=== PATIENT | male | born 1935 | race Caucasian/White ===

== ENCOUNTER 2021-06-13 13:34 | Outpatient (CLI) | payer MEDICARE, BC | END 2021-06-13 13:35 | disposition home or self-care (01) | LOC: CSHWCC 13:34 | PROVIDERS: ATTEND Nurse Practitioner Family | DX: L89.514 Pressure ulcer of right ankle, stage 4 (principal); R60.1 Generalized edema ==

== ENCOUNTER 2021-06-21 14:24 | Outpatient (CLI) | payer MEDICARE, BC | END 2021-06-21 14:25 | disposition home or self-care (01) | LOC: CSHWCC 14:24 | PROVIDERS: ATTEND Nurse Practitioner Family | DX: I87.313 Chronic venous hypertension (idiopathic) with ulcer of bilateral lower extremity (principal); L97.219 Non-pressure chronic ulcer of right calf with unspecified severity; L97.319 Non-pressure chronic ulcer of right ankle with unspecified severity; L97.229 Non-pressure chronic ulcer of left calf with unspecified severity | CPT/HCPCS: 11043; 29581; 97139; G0463; 99213 ==

== ENCOUNTER 2021-07-05 14:32 | Outpatient (CLI) | payer MEDICARE, BC | END 2021-07-05 14:33 | disposition home or self-care (01) | LOC: CSHWCC 14:32 | PROVIDERS: ATTEND Nurse Practitioner Family | DX: I87.311 Chronic venous hypertension (idiopathic) with ulcer of right lower extremity (principal); L97.312 Non-pressure chronic ulcer of right ankle with fat layer exposed; R60.1 Generalized edema | CPT/HCPCS: 11042; 87070; 87077; 87186; 87205; 99213; G0463 ==

== ENCOUNTER 2021-08-09 14:58 | Outpatient (CLI) | payer MEDICARE, BC | END 2021-08-09 14:59 | disposition home or self-care (01) | LOC: CSHWCC 14:58 | PROVIDERS: ATTEND Nurse Practitioner Family | DX: I87.311 Chronic venous hypertension (idiopathic) with ulcer of right lower extremity (principal); L97.312 Non-pressure chronic ulcer of right ankle with fat layer exposed; L97.212 Non-pressure chronic ulcer of right calf with fat layer exposed; R60.0 Localized edema | CPT/HCPCS: 11043; 11046; 29581 ==

== ENCOUNTER 2021-08-30 15:03 | Outpatient (CLI) | payer MEDICARE, BC | END 2021-08-30 15:04 | disposition home or self-care (01) | LOC: CSHWCC 15:03 | PROVIDERS: ATTEND Nurse Practitioner Family | DX: I87.311 Chronic venous hypertension (idiopathic) with ulcer of right lower extremity (principal); L97.812 Non-pressure chronic ulcer of other part of right lower leg with fat layer exposed; L97.212 Non-pressure chronic ulcer of right calf with fat layer exposed; R60.0 Localized edema | CPT/HCPCS: 11042; 97605 ==

== ENCOUNTER 2021-09-13 14:36 | Outpatient (CLI) | payer MEDICARE, BC | END 2021-09-13 14:37 | disposition home or self-care (01) | LOC: CSHWCC 14:36 | PROVIDERS: ATTEND Nurse Practitioner Family | DX: I87.311 Chronic venous hypertension (idiopathic) with ulcer of right lower extremity (principal); L97.312 Non-pressure chronic ulcer of right ankle with fat layer exposed; L97.212 Non-pressure chronic ulcer of right calf with fat layer exposed; R60.0 Localized edema | CPT/HCPCS: 11042; 97139; G0463; 99213 ==

== ENCOUNTER 2021-09-20 13:53 | Outpatient (CLI) | payer MEDICARE, BC | END 2021-09-20 13:54 | disposition home or self-care (01) | LOC: CSHWCC 13:53 | PROVIDERS: ATTEND Nurse Practitioner Family | DX: I87.311 Chronic venous hypertension (idiopathic) with ulcer of right lower extremity (principal); L97.312 Non-pressure chronic ulcer of right ankle with fat layer exposed; L97.212 Non-pressure chronic ulcer of right calf with fat layer exposed; R60.0 Localized edema ==

== ENCOUNTER 2021-09-20 15:11 | Inpatient (IN) | payer MEDICARE, BC ==
[2021-09-20 15:44] LABS: #Monocytes 0.5 10x3/uL (0.0-1.1); #Neutrophils 10.4 10x3/uL (1.5-8.4); %Basophils 0.3 % (0.0-2.0); %Eosinophils 0.3 % (0.0-6.0); %Lymphocytes 6.3 % (18.0-47.0); %Monocytes 4.5 % (0.0-10.0); %Neutrophils 87.9 % (40.0-75.0); Hemoglobin 12.6 g/dL (13.5-17.5); Mean Corpuscular HGB CONC 32.3 g/dL (32.0-36.0); Mean Corpuscular Hemoglobin 29.7 pg (27.0-33.0); Mean Platelet Volume 8.9 fl (7.4-10.4); Platelet Count 206 10x3/uL (150-450); RBC Distribution Width 16.2 % (11.5-14.5); Red Blood Cell (RBC) Count 4.24 10x6/uL (4.32-5.72); White Blood Cell (WBC) Count 11.8 10x3/uL (3.5-10.5)
[2021-09-20] MEDS ORDERED: Cefepime 2 GM VIAL ONE (15:52)
[2021-09-20] MEDS ORDERED: Acetaminophen 325 MG TAB ONE (15:52)
[2021-09-20 16:16] LABS: ALT (SGPT) 30 U/L (8-55); AST (SGOT) 50 U/L (5-34); Albumin 3.7 g/dL (3.4-4.8); Alkaline Phosphatase 73 U/L (40-110); Anion Gap 17 mmol/L (10-20); BUN (Urea Nitrogen) 28 mg/dL (8.4-25.7); Bilirubin, Total 1.9 mg/dL (0.2-1.2); CK (CPK) 81 U/L (30-200); Calc. Creatinine Clearance 0 mL/min (70-130); Calcium 10.2 mg/dL (7.8-10.44); Carbon Dioxide 21 mmol/L (23-31); Chloride 94 mmol/L (98-107); Globulin 4.4 g/dL (2.4-3.5); Glucose 131 mg/dL (83-110); Potassium 4.3 mmol/L (3.5-5.1); Protein, Total 8.1 g/dL (5.8-8.1); Sodium 128 mmol/L (136-145)
[2021-09-20 16:23] LABS: Bilirubin Neg (Negative); Blood, Urine 150 (Negative); Glucose, Urine (Dipstick) >=1000 mg/dL (Negative); Ketone, Urine Negative (Negative); Leukocyte Negative (Negative); Nitrite Negative (Negative); Protein, Urine (Dipstick) 30 mg/dl (Neg-Trace)
[2021-09-20 16:38] LABS: Clarity Clear (Clear)
[2021-09-20 16:40] LABS: Squamous Epithelial 0-3 HPF (0-3); WBC/HPF 0-3 HPF (0-3)
[2021-09-20 16:43] LABS: Bacteria/HPF Rare-Few HPF (None Seen)
[2021-09-20] MEDS ORDERED: VANCOMYCIN 2 GRAM/400 ML BAG 2 GM in Premix Bag 1 BAG IVPB SCH (17:00)
[2021-09-20 17:03] LABS: SARS-CoV-2 NAA Rapid Test Not Detected (NotDetected)
[2021-09-20] MEDS ORDERED: Morphine 4 MG/ML VIAL ONE (17:11)
[2021-09-20] MEDS ORDERED: Senokot S 8.6-50 MG TAB PO PRN (18:06)
[2021-09-20] MEDS ORDERED: Dextrose 50% Abboject 50 ML SYRINGE SLOW IVP PRN (18:06)
[2021-09-20] MEDS ORDERED: Dextrose 5% in Water 1,000 ML IV PRN (18:06)
[2021-09-20] MEDS ORDERED: HumaLOG 300 UNITS/3 ML VIAL SC PRN ×2 (18:06)
[2021-09-20] MEDS ORDERED: Morphine 2 MG/ML VIAL SLOW IVP PRN (18:10)
[2021-09-20] MEDS ORDERED: Metoprolol Tartrate 5 MG/5 ML VIAL IVP SCH (22:00)
[2021-09-20] MEDS: Digoxin 0.5 MG/2 ML AMP SLOW IVP SCH ×2 (22:09→23:43)
[2021-09-20 22:35] LABS: Magnesium 1.8 mg/dL (1.6-2.6)
[2021-09-21] MEDS: Lactated Ringer's 1,000 ML IV SCH ×2 (02:00→21:56)
[2021-09-21] MEDS: Digoxin 0.5 MG/2 ML AMP SLOW IVP SCH (02:20)
[2021-09-21 04:34] LABS: #Monocytes 1.1 10x3/uL (0.0-1.1); #Neutrophils 10.3 10x3/uL (1.5-8.4); %Basophils 0.3 % (0.0-2.0); %Eosinophils 0.1 % (0.0-6.0); %Monocytes 8.9 % (0.0-10.0); %Neutrophils 82.1 % (40.0-75.0); Hemoglobin 10.6 g/dL (13.5-17.5); Mean Corpuscular HGB CONC 33.1 g/dL (32.0-36.0); Mean Corpuscular Hemoglobin 29.7 pg (27.0-33.0); Mean Corpuscular Volume 89.6 fl (81.2-95.1); Mean Platelet Volume 8.8 fl (7.4-10.4); Platelet Count 178 10x3/uL (150-450); RBC Distribution Width 16.2 % (11.5-14.5); Red Blood Cell (RBC) Count 3.57 10x6/uL (4.32-5.72); White Blood Cell (WBC) Count 12.5 10x3/uL (3.5-10.5)
[2021-09-21 05:06] LABS: ALT (SGPT) 34 U/L (8-55); AST (SGOT) 64 U/L (5-34); Albumin 2.8 g/dL (3.4-4.8); Alkaline Phosphatase 63 U/L (40-110); Anion Gap 14 mmol/L (10-20); BUN (Urea Nitrogen) 24 mg/dL (8.4-25.7); Bilirubin, Total 1.2 mg/dL (0.2-1.2); Calc. Creatinine Clearance 78 mL/min (70-130); Calcium 8.8 mg/dL (7.8-10.44); Carbon Dioxide 20 mmol/L (23-31); Chloride 101 mmol/L (98-107); Globulin 3.2 g/dL (2.4-3.5); Glucose 121 mg/dL (83-110); Sodium 131 mmol/L (136-145)
[2021-09-21] MEDS ORDERED: Piperacillin/Tazobactam 3.375 GM in Sodium Chloride 0.9% 100 ML IVPB SCH ×2 (09:30→13:45)
[2021-09-21] MEDS ORDERED: Rivaroxaban 15 MG TAB PO SCH (10:45)
[2021-09-21] MEDS: Morphine 2 MG/ML VIAL SLOW IVP PRN (11:49)
[2021-09-21] MEDS: Spironolactone 25 MG TAB PO SCH (11:59)
[2021-09-21] MEDS: Furosemide 20 MG TAB PO SCH (11:59)
[2021-09-21] MEDS: HYDROcodone/Acetaminophen 5/325 mg Tablet PO PRN (14:30)
[2021-09-21] MEDS ORDERED: Vancomycin HCl 1 GM in Sodium Chloride 0.9% 250 ML 250 ML IVPB SCH (15:00)
[2021-09-21] MEDS ORDERED: Cefepime 1 GM in Sodium Chloride 0.9% 100 ML IVPB SCH (21:00)
[2021-09-21] MEDS: Simvastatin 10 MG TAB PO SCH (21:56)
[2021-09-21] MEDS: Cefepime 2 GM in Sodium Chloride 0.9% 100 ML IVPB SCH (21:56)
[2021-09-21] MEDS: Ferrous Sulfate 325 MG TAB PO SCH (21:56)
[2021-09-21] MEDS: metroNIDAZOLE 500 MG TAB PO SCH (21:56)
[2021-09-22 05:16] LABS: #Eosinphils 0.2 10x3/uL (0.0-0.5); #Monocytes 1.1 10x3/uL (0.0-1.1); #Neutrophils 5.4 10x3/uL (1.5-8.4); %Basophils 0.4 % (0.0-2.0); %Lymphocytes 12.7 % (18.0-47.0); %Neutrophils 70.1 % (40.0-75.0); Hemoglobin 10.8 g/dL (13.5-17.5); Mean Corpuscular HGB CONC 32.7 g/dL (32.0-36.0); Mean Corpuscular Hemoglobin 29.5 pg (27.0-33.0); Mean Corpuscular Volume 90.2 fl (81.2-95.1); Mean Platelet Volume 8.8 fl (7.4-10.4); Platelet Count 190 10x3/uL (150-450); RBC Distribution Width 16.1 % (11.5-14.5); Red Blood Cell (RBC) Count 3.66 10x6/uL (4.32-5.72); White Blood Cell (WBC) Count 7.6 10x3/uL (3.5-10.5)
[2021-09-22 05:27] LABS: ALT (SGPT) 58 U/L (8-55); AST (SGOT) 98 U/L (5-34); Albumin 2.7 g/dL (3.4-4.8); Alkaline Phosphatase 64 U/L (40-110); Anion Gap 15 mmol/L (10-20); BUN (Urea Nitrogen) 22 mg/dL (8.4-25.7); Bilirubin, Total 0.9 mg/dL (0.2-1.2); Calc. Creatinine Clearance 83 mL/min (70-130); Calcium 8.8 mg/dL (7.8-10.44); Carbon Dioxide 20 mmol/L (23-31); Chloride 100 mmol/L (98-107); Globulin 3.2 g/dL (2.4-3.5); Glucose 110 mg/dL (83-110); Potassium 4.2 mmol/L (3.5-5.1); Protein, Total 5.9 g/dL (5.8-8.1); Sodium 131 mmol/L (136-145)
[2021-09-22] MEDS: Bisacodyl 5 MG TAB PO PRN (06:23)
[2021-09-22] MEDS: Amiodarone 200 MG TAB PO SCH (11:10)
[2021-09-22] MEDS: Empagliflozin 10 MG TAB PO SCH (11:10)
[2021-09-22] MEDS: Cefepime 2 GM in Sodium Chloride 0.9% 100 ML IVPB SCH ×2 (11:10→22:00)
[2021-09-22] MEDS: Morphine 2 MG/ML VIAL SLOW IVP PRN (11:11)
[2021-09-22] MEDS: metroNIDAZOLE 500 MG TAB PO SCH ×2 (11:11→21:55)
[2021-09-22] MEDS: Aspirin 81 mg Enteric Coated Tablet PO SCH (11:11)
[2021-09-22] MEDS: Stress 600 With Zinc 1 TAB PO SCH (11:11)
[2021-09-22] MEDS: HYDROcodone/Acetaminophen 5/325 mg Tablet PO PRN (18:01)
[2021-09-22] MEDS: Lactated Ringer's 1,000 ML IV SCH (18:02)
[2021-09-22] MEDS: Simvastatin 10 MG TAB PO SCH (21:55)
[2021-09-22] MEDS: Ferrous Sulfate 325 MG TAB PO SCH (21:55)
[2021-09-22] MEDS: Enoxaparin Sodium 100 MG/ML SYRINGE SC SCH (22:00)
[2021-09-23] MEDS: Acetaminophen 325 MG TAB PO PRN (04:43)
[2021-09-23] MEDS: Bisacodyl 5 MG TAB PO PRN (04:50)
[2021-09-23 05:23] LABS: ALT (SGPT) 73 U/L (8-55); AST (SGOT) 106 U/L (5-34); Albumin 2.8 g/dL (3.4-4.8); Alkaline Phosphatase 70 U/L (40-110); Anion Gap 16 mmol/L (10-20); BUN (Urea Nitrogen) 21 mg/dL (8.4-25.7); Bilirubin, Total 1.2 mg/dL (0.2-1.2); Calc. Creatinine Clearance 91 mL/min (70-130); Calcium 9.2 mg/dL (7.8-10.44); Carbon Dioxide 23 mmol/L (23-31); Chloride 97 mmol/L (98-107); Globulin 3.4 g/dL (2.4-3.5); Glucose 110 mg/dL (83-110); Potassium 4.2 mmol/L (3.5-5.1); Protein, Total 6.2 g/dL (5.8-8.1); Sodium 132 mmol/L (136-145)
[2021-09-23] MEDS ORDERED: Fleet Enema 133 ML BOT PR SCH (05:30)
[2021-09-23] MEDS: Stress 600 With Zinc 1 TAB PO SCH (08:58)
[2021-09-23] MEDS: Aspirin 81 mg Enteric Coated Tablet PO SCH (08:58)
[2021-09-23] MEDS: metroNIDAZOLE 500 MG TAB PO SCH ×2 (08:58→21:52)
[2021-09-23] MEDS: Amiodarone 200 MG TAB PO SCH (09:00)
[2021-09-23] MEDS: Cefepime 2 GM in Sodium Chloride 0.9% 100 ML IVPB SCH (09:00)
[2021-09-23] MEDS: Empagliflozin 10 MG TAB PO SCH (09:02)
[2021-09-23] MEDS: Enoxaparin Sodium 100 MG/ML SYRINGE SC SCH ×2 (09:03→22:00)
[2021-09-23] MEDS: Spironolactone 25 MG TAB PO SCH (09:06)
[2021-09-23] MEDS: Morphine 2 MG/ML VIAL SLOW IVP PRN ×2 (09:16→14:13)
[2021-09-23] MEDS: Lactated Ringer's 1,000 ML IV SCH (14:05)
[2021-09-23] MEDS: cefTRIAXone\\ROCEPHIN 2 GM in Sodium Chloride 0.9% 100 ML IVPB SCH (14:14)
[2021-09-23] MEDS: Ferrous Sulfate 325 MG TAB PO SCH (21:52)
[2021-09-23] MEDS: Simvastatin 10 MG TAB PO SCH (21:52)
[2021-09-23] MEDS: HYDROcodone/Acetaminophen 5/325 mg Tablet PO PRN (23:10)
[2021-09-24] MEDS: Acetaminophen 325 MG TAB PO PRN ×2 (06:12→12:54)
[2021-09-24] MEDS: Enoxaparin Sodium 100 MG/ML SYRINGE SC SCH ×2 (08:35→20:43)
[2021-09-24] MEDS: Amiodarone 200 MG TAB PO SCH (08:36)
[2021-09-24] MEDS: Aspirin 81 mg Enteric Coated Tablet PO SCH (08:36)
[2021-09-24] MEDS: Empagliflozin 10 MG TAB PO SCH (08:37)
[2021-09-24] MEDS: metroNIDAZOLE 500 MG TAB PO SCH ×2 (08:38→20:43)
[2021-09-24] MEDS: Stress 600 With Zinc 1 TAB PO SCH (08:38)
[2021-09-24] MEDS: Lactated Ringer's 1,000 ML IV SCH (08:40)
[2021-09-24] MEDS: Ondansetron ODT 4 MG TAB PO PRN (09:03)
[2021-09-24] MEDS ORDERED: Furosemide 20 MG TAB PO SCH (09:30)
[2021-09-24] MEDS: cefTRIAXone\\ROCEPHIN 2 GM in Sodium Chloride 0.9% 100 ML IVPB SCH (12:55)
[2021-09-24] MEDS: Ferrous Sulfate 325 MG TAB PO SCH (20:42)
[2021-09-24] MEDS: guaiFENesin ER 600 MG TAB PO SCH (20:42)
[2021-09-24] MEDS: Simvastatin 10 MG TAB PO SCH (20:43)
[2021-09-24] MEDS: HYDROcodone/Acetaminophen 5/325 mg Tablet PO PRN (20:47)
[2021-09-24] MEDS: Morphine 2 MG/ML VIAL SLOW IVP PRN (23:29)
[2021-09-25 04:22] LABS: #Basophils 0.1 10x3/uL (0.0-0.2); #Eosinphils 0.1 10x3/uL (0.0-0.5); #Monocytes 1.3 10x3/uL (0.0-1.1); #Neutrophils 9.4 10x3/uL (1.5-8.4); %Basophils 0.4 % (0.0-2.0); %Eosinophils 0.4 % (0.0-6.0); %Lymphocytes 9.3 % (18.0-47.0); %Monocytes 10.4 % (0.0-10.0); %Neutrophils 78.3 % (40.0-75.0); Hemoglobin 12.2 g/dL (13.5-17.5); Mean Corpuscular HGB CONC 32.7 g/dL (32.0-36.0); Mean Corpuscular Hemoglobin 28.8 pg (27.0-33.0); Mean Platelet Volume 8.4 fl (7.4-10.4); Platelet Count 210 10x3/uL (150-450); RBC Distribution Width 15.9 % (11.5-14.5); Red Blood Cell (RBC) Count 4.24 10x6/uL (4.32-5.72)
[2021-09-25] MEDS: Acetaminophen 325 MG TAB PO PRN ×2 (04:32→09:45)
[2021-09-25 04:43] LABS: INR-International Normal Ratio 1.3; Prothrombin Time 13.5 sec (9.5-12.1)
[2021-09-25 04:58] LABS: Anion Gap 15 mmol/L (10-20); BUN (Urea Nitrogen) 18 mg/dL (8.4-25.7); CRP (Inflammatory) 23.73 mg/dL (= or < 0.5); Calc. Creatinine Clearance 98 mL/min (70-130); Calcium 9.3 mg/dL (7.8-10.44); Carbon Dioxide 26 mmol/L (23-31); Chloride 94 mmol/L (98-107); Glucose 125 mg/dL (83-110); Potassium 3.9 mmol/L (3.5-5.1); Sodium 131 mmol/L (136-145)
[2021-09-25] MEDS: Lactated Ringer's 1,000 ML IV SCH (05:44)
[2021-09-25] MEDS: metroNIDAZOLE 500 MG TAB PO SCH ×2 (09:43→20:45)
[2021-09-25] MEDS: Stress 600 With Zinc 1 TAB PO SCH (09:44)
[2021-09-25] MEDS: guaiFENesin ER 600 MG TAB PO SCH ×2 (09:45→20:45)
[2021-09-25] MEDS: Amiodarone 200 MG TAB PO SCH (09:46)
[2021-09-25] MEDS: Aspirin 81 mg Enteric Coated Tablet PO SCH (09:47)
[2021-09-25] MEDS: Empagliflozin 10 MG TAB PO SCH (09:48)
[2021-09-25] MEDS: Enoxaparin Sodium 100 MG/ML SYRINGE SC SCH ×2 (09:49→20:45)
[2021-09-25] MEDS ORDERED: Lidocaine 1% PF 5 ML VIAL ONE (11:58)
[2021-09-25] MEDS ORDERED: Sodium Bicarbonate 2.5 MEQ/5 ML VIAL ONE (11:59)
[2021-09-25] MEDS: Spironolactone 25 MG TAB PO SCH (13:56)
[2021-09-25] MEDS: cefTRIAXone\\ROCEPHIN 2 GM in Sodium Chloride 0.9% 100 ML IVPB SCH ×2 (13:56→14:21)
[2021-09-25] MEDS: Ondansetron ODT 4 MG TAB PO PRN (17:51)
[2021-09-25] MEDS: HYDROcodone/Acetaminophen 5/325 mg Tablet PO PRN (18:56)
[2021-09-25] MEDS: Ferrous Sulfate 325 MG TAB PO SCH (20:45)
[2021-09-25] MEDS: Simvastatin 10 MG TAB PO SCH (20:47)
[2021-09-26] MEDS: HYDROcodone/Acetaminophen 5/325 mg Tablet PO PRN (01:24)
[2021-09-26] MEDS ORDERED: Communication Order-Pharmacy FS SCH (02:00)
[2021-09-26 04:59] LABS: #Basophils 0.1 10x3/uL (0.0-0.2); #Eosinphils 0.1 10x3/uL (0.0-0.5); #Monocytes 1.3 10x3/uL (0.0-1.1); #Neutrophils 7.3 10x3/uL (1.5-8.4); %Basophils 0.7 % (0.0-2.0); %Eosinophils 1.3 % (0.0-6.0); %Lymphocytes 13.9 % (18.0-47.0); %Monocytes 12.2 % (0.0-10.0); %Neutrophils 69.6 % (40.0-75.0); Mean Corpuscular HGB CONC 32.9 g/dL (32.0-36.0); Mean Corpuscular Hemoglobin 29.3 pg (27.0-33.0); Mean Corpuscular Volume 89.2 fl (81.2-95.1); Mean Platelet Volume 8.6 fl (7.4-10.4); Platelet Count 240 10x3/uL (150-450); RBC Distribution Width 16.1 % (11.5-14.5); Red Blood Cell (RBC) Count 4.09 10x6/uL (4.32-5.72); White Blood Cell (WBC) Count 10.5 10x3/uL (3.5-10.5)
[2021-09-26 05:14] LABS: Anion Gap 15 mmol/L (10-20); BUN (Urea Nitrogen) 22 mg/dL (8.4-25.7); Calc. Creatinine Clearance 106 mL/min (70-130); Calcium 9.4 mg/dL (7.8-10.44); Carbon Dioxide 27 mmol/L (23-31); Chloride 93 mmol/L (98-107); Glucose 97 mg/dL (83-110); Magnesium 1.8 mg/dL (1.6-2.6); Potassium 4.1 mmol/L (3.5-5.1); Sodium 131 mmol/L (136-145)
[2021-09-26] MEDS ORDERED: Sodium Chloride 0.9% 1,000 ML IV SCH (06:00)
[2021-09-26] MEDS: Lactated Ringer's 1,000 ML IV SCH (06:02)
[2021-09-26] MEDS: metroNIDAZOLE 500 MG TAB PO SCH ×2 (08:54→22:44)
[2021-09-26] MEDS: Amiodarone 200 MG TAB PO SCH (08:54)
[2021-09-26] MEDS: Aspirin 81 mg Enteric Coated Tablet PO SCH (08:54)
[2021-09-26] MEDS: guaiFENesin ER 600 MG TAB PO SCH ×2 (08:55→22:44)
[2021-09-26] MEDS: Empagliflozin 10 MG TAB PO SCH (08:55)
[2021-09-26] MEDS ORDERED: Furosemide 20 MG TAB PO SCH (09:00)
[2021-09-26] MEDS ORDERED: Iopamidol 300 61% 50 ML VIAL FS ONE (09:14)
[2021-09-26] MEDS ORDERED: Iopamidol 300 61% 100 ML VIAL FS ONE (09:15)
[2021-09-26 09:39] VITALS: BMI 34.8
[2021-09-26] MEDS: cefTRIAXone\\ROCEPHIN 2 GM in Sodium Chloride 0.9% 100 ML IVPB SCH (13:20)
[2021-09-26] MEDS ORDERED: Nitroglycerin 50 MG/250 ML BOT 0 ML ONE (13:25)
[2021-09-26] MEDS ORDERED: Heparin 10,000 UNITS/ 10 ML VIAL ONE (13:25)
[2021-09-26] MEDS ORDERED: Lidocaine 1% PF 5 ML VIAL ONE (13:26)
[2021-09-26] MEDS ORDERED: Adenosine 6 MG/2 ML VIAL ONE (13:26)
[2021-09-26] MEDS ORDERED: Fentanyl 100 MCG/2 ML VIAL ONE (15:20)
[2021-09-26] MEDS ORDERED: Midazolam HCl 2 mg/2 ml Vial ONE (15:20)
[2021-09-26] MEDS: Morphine 2 MG/ML VIAL SLOW IVP PRN (17:45)
[2021-09-26] MEDS ORDERED: Nitroglycerin 0.4 MG TAB (25 Tab Bottle) SL PRN (17:54)
[2021-09-26] MEDS ORDERED: Acetaminophen/Codeine 30-300mg Tablet PO PRN ×2 (17:54)
[2021-09-26] MEDS ORDERED: Sodium Chloride 0.9% 200 ML IV PRN (17:54)
[2021-09-26] MEDS: Ferrous Sulfate 325 MG TAB PO SCH (22:44)
[2021-09-26] MEDS: Simvastatin 10 MG TAB PO SCH (22:45)
[2021-09-27] MEDS: HYDROcodone/Acetaminophen 5/325 mg Tablet PO PRN (00:45)
[2021-09-27] MEDS: Lactated Ringer's 1,000 ML IV SCH (02:02)
[2021-09-27 04:28] LABS: Anion Gap 18 mmol/L (10-20); BUN (Urea Nitrogen) 23 mg/dL (8.4-25.7); Calc. Creatinine Clearance 83 mL/min (70-130); Calcium 9.1 mg/dL (7.8-10.44); Carbon Dioxide 27 mmol/L (23-31); Chloride 93 mmol/L (98-107); Glucose 109 mg/dL (83-110); Magnesium 1.9 mg/dL (1.6-2.6); Potassium 4.2 mmol/L (3.5-5.1); Sodium 134 mmol/L (136-145)
[2021-09-27] MEDS: Empagliflozin 10 MG TAB PO SCH (08:58)
[2021-09-27] MEDS: Stress 600 With Zinc 1 TAB PO SCH (08:59)
[2021-09-27] MEDS: metroNIDAZOLE 500 MG TAB PO SCH (08:59)
[2021-09-27] MEDS: Aspirin 81 mg Enteric Coated Tablet PO SCH (08:59)
[2021-09-27] MEDS: Amiodarone 200 MG TAB PO SCH (08:59)
[2021-09-27] MEDS: guaiFENesin ER 600 MG TAB PO SCH (08:59)
[2021-09-27] MEDS: Spironolactone 25 MG TAB PO SCH (09:01)
[2021-09-27 12:03] VITALS: BP 102/52
[2021-09-27 12:55] VITALS: TEMP 96.8
[2021-09-27] MEDS: cefTRIAXone\\ROCEPHIN 2 GM in Sodium Chloride 0.9% 100 ML IVPB SCH (12:59)
== END 2021-09-27 14:22 | disposition short-term general hospital (02) | DRG 871 ==
LOC: CSHERS 15:11 → INTOOBSV 19:33 → CSHTELE 19:33 → OBSVTOIN 09-21 16:53
PROVIDERS: ADMIT Family Medicine; ATTEND Family Medicine
PROC: 3E03329 Introduction of Other Anti-infective into Peripheral Vein, Percutaneous Approach (ICD-10-PCS; 2021-09-20)
PROC: 02HV33Z Insertion of Infusion Device into Superior Vena Cava, Percutaneous Approach (ICD-10-PCS; principal; 2021-09-25)
PROC: B548ZZA Ultrasonography of Superior Vena Cava, Guidance (ICD-10-PCS; 2021-09-25)
PROC: B41D1ZZ Fluoroscopy of Aorta and Bilateral Lower Extremity Arteries using Low Osmolar Contrast (ICD-10-PCS; 2021-09-27)
DX: A41.01 Sepsis due to Methicillin susceptible Staphylococcus aureus (principal); I50.33 Acute on chronic diastolic (congestive) heart failure; I48.92 Unspecified atrial flutter; E87.1 Hypo-osmolality and hyponatremia; L03.115 Cellulitis of right lower limb; I13.0 Hypertensive heart and chronic kidney disease with heart failure and stage 1 through stage 4 chronic kidney disease, or unspecified chronic kidney disease; Z68.41 Body mass index [BMI] 40.0-44.9, adult; M86.8X7 Other osteomyelitis, ankle and foot; Z66 Do not resuscitate; I25.10 Atherosclerotic heart disease of native coronary artery without angina pectoris; S91.001A Unspecified open wound, right ankle, initial encounter; L97.519 Non-pressure chronic ulcer of other part of right foot with unspecified severity; Z20.822 Contact with and (suspected) exposure to COVID-19; E11.40 Type 2 diabetes mellitus with diabetic neuropathy, unspecified; E11.51 Type 2 diabetes mellitus with diabetic peripheral angiopathy without gangrene; I87.2 Venous insufficiency (chronic) (peripheral); F03.90 Unspecified dementia, unspecified severity, without behavioral disturbance, psychotic disturbance, mood disturbance, and anxiety; I48.0 Paroxysmal atrial fibrillation; E78.2 Mixed hyperlipidemia; M54.9 Dorsalgia, unspecified; N18.32 Chronic kidney disease, stage 3b; J44.9 Chronic obstructive pulmonary disease, unspecified; E11.22 Type 2 diabetes mellitus with diabetic chronic kidney disease; E66.01 Morbid (severe) obesity due to excess calories; G47.30 Sleep apnea, unspecified; E11.21 Type 2 diabetes mellitus with diabetic nephropathy; E11.69 Type 2 diabetes mellitus with other specified complication; Z85.828 Personal history of other malignant neoplasm of skin; Z98.890 Other specified postprocedural states; Z95.5 Presence of coronary angioplasty implant and graft; Z95.1 Presence of aortocoronary bypass graft; Z99.81 Dependence on supplemental oxygen; Z98.42 Cataract extraction status, left eye; Z88.8 Allergy status to other drugs, medicaments and biological substances; I25.2 Old myocardial infarction; Z98.41 Cataract extraction status, right eye; Z82.49 Family history of ischemic heart disease and other diseases of the circulatory system; Z83.3 Family history of diabetes mellitus; Z79.01 Long term (current) use of anticoagulants; Z79.899 Other long term (current) drug therapy; Z79.84 Long term (current) use of oral hypoglycemic drugs; Z79.82 Long term (current) use of aspirin; Z79.891 Long term (current) use of opiate analgesic
CPT/HCPCS: 36140; 36245; 36415; 36416; 36569; 71045; 75625; 75635; 75716; 75736; 80048; 80053; 81003; 81015; 82550; 83605; 83735; 84484; 85025; 85610; 86140; 87040; 87077; 87086; 87149; 87186; 93005; 93306; 94760; 94799; 96361; 96365; 96375; 96376; 99152; 99153; 99213; C1751; C1769; C1894; G0378; G0463; J0153; J0692; J0696; J1160; J1644; J1650; J2250; J2270; J3010; J3370; J3490; J7050; J7120; J7620; Q0162; Q9967; U0002

== ENCOUNTER 2021-10-14 12:56 | Inpatient (IN) | payer MEDICARE, BC ==
[2021-10-14] MEDS ORDERED: Guaifenesin DM 100-10/5 ML UDCUP PO PRN (20:34)
[2021-10-14] MEDS ORDERED: Ondansetron PF 4 MG/2 ML Vial IVP PRN (20:34)
[2021-10-14] MEDS ORDERED: Senokot S 8.6-50 MG TAB PO PRN (20:34)
[2021-10-14] MEDS ORDERED: Albuterol Sulfate 1.25 MG/3 ML NEB EZPAP PRN (20:43)
[2021-10-14] MEDS ORDERED: Pantoprazole 80 MG in Sodium Chloride 0.9% 100 ML IVPB SCH (20:45)
[2021-10-14] MEDS ORDERED: cefTRIAXone\\ROCEPHIN 2 GM in Sodium Chloride 0.9% 100 ML IVPB SCH (21:00)
[2021-10-14] MEDS ORDERED: Dextrose 50% Abboject 50 ML SYRINGE SLOW IVP PRN (21:08)
[2021-10-14] MEDS ORDERED: Dextrose 5% in Water 1,000 ML IV PRN (21:08)
[2021-10-14 21:23] LABS: #Eosinphils 0.1 10x3/uL (0.0-0.5); #Monocytes 0.9 10x3/uL (0.0-1.1); #Neutrophils 4.1 10x3/uL (1.5-8.4); %Basophils 0.4 % (0.0-2.0); %Eosinophils 0.9 % (0.0-6.0); %Lymphocytes 23.2 % (18.0-47.0); %Monocytes 13.2 % (0.0-10.0); %Neutrophils 58.9 % (40.0-75.0); Hemoglobin 9.7 g/dL (13.5-17.5); Mean Corpuscular HGB CONC 32.7 g/dL (32.0-36.0); Mean Corpuscular Hemoglobin 29.1 pg (27.0-33.0); Mean Corpuscular Volume 89.2 fl (81.2-95.1); Mean Platelet Volume 8.5 fl (7.4-10.4); Platelet Count 125 10x3/uL (150-450); RBC Distribution Width 17.8 % (11.5-14.5); Red Blood Cell (RBC) Count 3.33 10x6/uL (4.32-5.72)
[2021-10-14 21:38] LABS: ALT (SGPT) 6 U/L (8-55); AST (SGOT) 31 U/L (5-34); Albumin 2.8 g/dL (3.4-4.8); Alkaline Phosphatase 60 U/L (40-110); Anion Gap 15 mmol/L (10-20); BUN (Urea Nitrogen) 40 mg/dL (8.4-25.7); Bilirubin, Total 0.8 mg/dL (0.2-1.2); Calc. Creatinine Clearance 122 mL/min (70-130); Calcium 8.5 mg/dL (7.8-10.44); Carbon Dioxide 22 mmol/L (23-31); Chloride 97 mmol/L (98-107); Globulin 3.7 g/dL (2.4-3.5); Glucose 85 mg/dL (83-110); Magnesium 2.3 mg/dL (1.6-2.6); Potassium 4.3 mmol/L (3.5-5.1); Protein, Total 6.5 g/dL (5.8-8.1); Sodium 130 mmol/L (136-145)
[2021-10-14 21:41] LABS: Troponin I 0.018 ng/mL (< 0.028)
[2021-10-14] MEDS ORDERED: Dexamethasone 20 MG/5 ML VIAL SLOW IVP SCH (22:00)
[2021-10-14] MEDS: metroNIDAZOLE 500 MG in Premix Bag 1 BAG IVPB SCH (22:07)
[2021-10-15] MEDS ORDERED: Lorazepam 2 MG/ML VIAL SLOW IVP SCH ×2 (01:45→21:15)
[2021-10-15] MEDS ORDERED: Lorazepam 2 MG/ML VIAL SLOW IVP PRN (02:00)
[2021-10-15 05:12] LABS: Hemoglobin 9.9 g/dL (13.5-17.5); Mean Corpuscular HGB CONC 31.9 g/dL (32.0-36.0); Mean Corpuscular Volume 90.9 fl (81.2-95.1); Mean Platelet Volume 8.7 fl (7.4-10.4); Platelet Count 136 10x3/uL (150-450); RBC Distribution Width 17.9 % (11.5-14.5); Red Blood Cell (RBC) Count 3.41 10x6/uL (4.32-5.72); White Blood Cell (WBC) Count 7.4 10x3/uL (3.5-10.5)
[2021-10-15 05:37] LABS: ALT (SGPT) Less than 6 U/L (8-55); AST (SGOT) 29 U/L (5-34); Albumin 2.7 g/dL (3.4-4.8); Alkaline Phosphatase 59 U/L (40-110); Anion Gap 17 mmol/L (10-20); BUN (Urea Nitrogen) 38 mg/dL (8.4-25.7); Bilirubin, Total 0.7 mg/dL (0.2-1.2); Calc. Creatinine Clearance 128 mL/min (70-130); Calcium 8.3 mg/dL (7.8-10.44); Carbon Dioxide 21 mmol/L (23-31); Chloride 100 mmol/L (98-107); Globulin 3.7 g/dL (2.4-3.5); Glucose 124 mg/dL (83-110); Potassium 4.6 mmol/L (3.5-5.1); Protein, Total 6.4 g/dL (5.8-8.1); Sodium 133 mmol/L (136-145)
[2021-10-15 06:24] LABS: MDiff Complete? YES
[2021-10-15 06:27] LABS: Band 8 % (5-11); Eosinophils 1 % (0-10); Lymphocytes 8 % (21-51); Metamyelocyte 3 % (0-0); Monocytes 4 % (0-10); Neutrophil 76 % (42-75)
[2021-10-15 06:28] LABS: Platelet Morphology Comment Appears Decreased; RBC Morphology Normal
[2021-10-15] MEDS: cefTRIAXone\\ROCEPHIN 2 GM in Sodium Chloride 0.9% 100 ML IVPB SCH (09:25)
[2021-10-15] MEDS: metroNIDAZOLE 500 MG in Premix Bag 1 BAG IVPB SCH ×2 (09:25→21:16)
[2021-10-15] MEDS: Dexamethasone 4 mg/ml Vial SLOW IVP SCH (09:31)
[2021-10-15] MEDS: Amiodarone 200 MG TAB PO SCH (09:31)
[2021-10-15] MEDS: Benzonatate 100 MG CAP PO PRN ×2 (09:31→21:16)
[2021-10-15] MEDS: Pantoprazole 40 MG VIAL IVP SCH (21:17)
[2021-10-16 05:34] LABS: #Monocytes 0.4 10x3/uL (0.0-1.1); #Neutrophils 5.6 10x3/uL (1.5-8.4); %Basophils 0.3 % (0.0-2.0); %Lymphocytes 11.2 % (18.0-47.0); %Neutrophils 79.6 % (40.0-75.0); Hemoglobin 9.9 g/dL (13.5-17.5); Mean Corpuscular HGB CONC 31.8 g/dL (32.0-36.0); Mean Corpuscular Hemoglobin 28.9 pg (27.0-33.0); Mean Corpuscular Volume 90.7 fl (81.2-95.1); Platelet Count 153 10x3/uL (150-450); RBC Distribution Width 18.2 % (11.5-14.5); Red Blood Cell (RBC) Count 3.43 10x6/uL (4.32-5.72)
[2021-10-16 05:50] LABS: Anion Gap 20 mmol/L (10-20); BUN (Urea Nitrogen) 46 mg/dL (8.4-25.7); CRP (Inflammatory) 8.14 mg/dL (= or < 0.5); Calc. Creatinine Clearance 128 mL/min (70-130); Calcium 8.4 mg/dL (7.8-10.44); Carbon Dioxide 19 mmol/L (23-31); Chloride 102 mmol/L (98-107); Glucose 146 mg/dL (83-110); Magnesium 2.4 mg/dL (1.6-2.6); Potassium 5.1 mmol/L (3.5-5.1); Sodium 136 mmol/L (136-145)
[2021-10-16] MEDS: metroNIDAZOLE 500 MG in Premix Bag 1 BAG IVPB SCH ×2 (09:21→21:16)
[2021-10-16] MEDS: Dexamethasone 4 mg/ml Vial SLOW IVP SCH (09:22)
[2021-10-16] MEDS: Pantoprazole 40 MG VIAL IVP SCH ×2 (09:22→21:16)
[2021-10-16] MEDS: Amiodarone 200 MG TAB PO SCH (09:22)
[2021-10-16] MEDS: cefTRIAXone\\ROCEPHIN 2 GM in Sodium Chloride 0.9% 100 ML IVPB SCH (10:50)
[2021-10-16 12:10] VITALS: BMI 41.8
[2021-10-16] MEDS: HumaLOG 300 UNITS/3 ML VIAL SC PRN (16:54)
[2021-10-16] MEDS: Acetaminophen 325 MG TAB PO PRN (21:18)
[2021-10-17] MEDS: Acetaminophen 325 MG TAB PO PRN ×2 (00:50→21:38)
[2021-10-17 05:39] LABS: #Monocytes 0.2 10x3/uL (0.0-1.1); #Neutrophils 5.1 10x3/uL (1.5-8.4); %Basophils 0.2 % (0.0-2.0); %Lymphocytes 8.3 % (18.0-47.0); %Monocytes 3.7 % (0.0-10.0); %Neutrophils 84.3 % (40.0-75.0); Mean Corpuscular HGB CONC 32.9 g/dL (32.0-36.0); Mean Corpuscular Hemoglobin 28.7 pg (27.0-33.0); Mean Corpuscular Volume 87.4 fl (81.2-95.1); Mean Platelet Volume 8.9 fl (7.4-10.4); Platelet Count 147 10x3/uL (150-450); RBC Distribution Width 18.1 % (11.5-14.5); Red Blood Cell (RBC) Count 3.48 10x6/uL (4.32-5.72)
[2021-10-17 05:59] LABS: Anion Gap 16 mmol/L (10-20); BUN (Urea Nitrogen) 50 mg/dL (8.4-25.7); Calc. Creatinine Clearance 62 mL/min (70-130); Calcium 8.2 mg/dL (7.8-10.44); Carbon Dioxide 22 mmol/L (23-31); Chloride 101 mmol/L (98-107); Glucose 176 mg/dL (83-110); Potassium 4.9 mmol/L (3.5-5.1); Sodium 134 mmol/L (136-145)
[2021-10-17] MEDS: Pantoprazole 40 MG VIAL IVP SCH ×2 (08:24→21:40)
[2021-10-17] MEDS: Dexamethasone 4 mg/ml Vial SLOW IVP SCH (08:24)
[2021-10-17] MEDS: Amiodarone 200 MG TAB PO SCH (08:24)
[2021-10-17] MEDS: cefTRIAXone\\ROCEPHIN 2 GM in Sodium Chloride 0.9% 100 ML IVPB SCH (08:24)
[2021-10-17] MEDS: metroNIDAZOLE 500 MG in Premix Bag 1 BAG IVPB SCH ×2 (10:31→21:37)
[2021-10-17] MEDS: HumaLOG 300 UNITS/3 ML VIAL SC PRN ×3 (12:11→22:13)
[2021-10-17] MEDS: Benzonatate 100 MG CAP PO PRN (16:25)
[2021-10-18 06:02] LABS: Anion Gap 13 mmol/L (10-20); BUN (Urea Nitrogen) 47 mg/dL (8.4-25.7); Calc. Creatinine Clearance 68 mL/min (70-130); Calcium 8.1 mg/dL (7.8-10.44); Carbon Dioxide 24 mmol/L (23-31); Chloride 100 mmol/L (98-107); Glucose 169 mg/dL (83-110); Potassium 4.7 mmol/L (3.5-5.1); Sodium 132 mmol/L (136-145)
[2021-10-18] MEDS: metroNIDAZOLE 500 MG in Premix Bag 1 BAG IVPB SCH ×2 (08:33→21:29)
[2021-10-18] MEDS: cefTRIAXone\\ROCEPHIN 2 GM in Sodium Chloride 0.9% 100 ML IVPB SCH (08:33)
[2021-10-18] MEDS: Dexamethasone 4 mg/ml Vial SLOW IVP SCH (08:34)
[2021-10-18] MEDS: Pantoprazole 40 MG VIAL IVP SCH ×2 (08:34→21:23)
[2021-10-18] MEDS: Amlodipine 5 MG TAB PO SCH (08:35)
[2021-10-18] MEDS: Benzonatate 100 MG CAP PO PRN (08:35)
[2021-10-18] MEDS: Amiodarone 200 MG TAB PO SCH ×2 (08:35→21:26)
[2021-10-18] MEDS ORDERED: guaiFENesin/Codeine 200 mg/20 mg 10 ml Cup PO PRN (11:59)
[2021-10-18] MEDS: HumaLOG 300 UNITS/3 ML VIAL SC PRN ×3 (14:14→21:30)
[2021-10-18] MEDS: guaiFENesin/Codeine Phosphate 100 mg/10 mg 5 ml UD Cup PO PRN (17:29)
[2021-10-19] MEDS: guaiFENesin/Codeine Phosphate 100 mg/10 mg 5 ml UD Cup PO PRN ×3 (04:45→20:33)
[2021-10-19 05:18] LABS: #Monocytes 0.5 10x3/uL (0.0-1.1); #Neutrophils 5.9 10x3/uL (1.5-8.4); %Basophils 0.3 % (0.0-2.0); %Lymphocytes 8.4 % (18.0-47.0); %Monocytes 6.4 % (0.0-10.0); %Neutrophils 80.5 % (40.0-75.0); Hemoglobin 10.2 g/dL (13.5-17.5); Mean Corpuscular HGB CONC 33.3 g/dL (32.0-36.0); Mean Corpuscular Hemoglobin 29.1 pg (27.0-33.0); Mean Corpuscular Volume 87.4 fl (81.2-95.1); Mean Platelet Volume 8.9 fl (7.4-10.4); Platelet Count 157 10x3/uL (150-450); RBC Distribution Width 18.1 % (11.5-14.5); White Blood Cell (WBC) Count 7.3 10x3/uL (3.5-10.5)
[2021-10-19 05:22] LABS: Anion Gap 14 mmol/L (10-20); BUN (Urea Nitrogen) 46 mg/dL (8.4-25.7); CRP (Inflammatory) 1.23 mg/dL (= or < 0.5); Calc. Creatinine Clearance 76 mL/min (70-130); Calcium 8.3 mg/dL (7.8-10.44); Carbon Dioxide 23 mmol/L (23-31); Chloride 102 mmol/L (98-107); Glucose 196 mg/dL (83-110); Potassium 4.8 mmol/L (3.5-5.1); Sodium 134 mmol/L (136-145)
[2021-10-19] MEDS: HumaLOG 300 UNITS/3 ML VIAL SC PRN ×3 (06:07→15:06)
[2021-10-19] MEDS: metroNIDAZOLE 500 MG in Premix Bag 1 BAG IVPB SCH ×2 (09:13→20:11)
[2021-10-19] MEDS: Empagliflozin 10 MG TAB PO SCH (09:14)
[2021-10-19] MEDS: cefTRIAXone\\ROCEPHIN 2 GM in Sodium Chloride 0.9% 100 ML IVPB SCH (09:14)
[2021-10-19] MEDS: Dexamethasone 4 mg/ml Vial SLOW IVP SCH (09:15)
[2021-10-19] MEDS: Benzonatate 100 MG CAP PO PRN (09:15)
[2021-10-19] MEDS: Amiodarone 200 MG TAB PO SCH ×2 (09:16→20:11)
[2021-10-19] MEDS: Amlodipine 5 MG TAB PO SCH (09:16)
[2021-10-19] MEDS: Pantoprazole 40 MG VIAL IVP SCH ×2 (09:19→20:11)
[2021-10-19] MEDS ORDERED: Amlodipine 10 MG TAB PO SCH (21:00)
[2021-10-20 04:47] LABS: Anion Gap 15 mmol/L (10-20); BUN (Urea Nitrogen) 43 mg/dL (8.4-25.7); Calc. Creatinine Clearance 74 mL/min (70-130); Calcium 8.3 mg/dL (7.8-10.44); Carbon Dioxide 23 mmol/L (23-31); Chloride 101 mmol/L (98-107); Glucose 185 mg/dL (83-110); Potassium 5.1 mmol/L (3.5-5.1); Sodium 134 mmol/L (136-145)
[2021-10-20 05:01] LABS: #Monocytes 0.4 10x3/uL (0.0-1.1); #Neutrophils 5.2 10x3/uL (1.5-8.4); %Basophils 0.3 % (0.0-2.0); %Lymphocytes 6.9 % (18.0-47.0); %Monocytes 6.5 % (0.0-10.0); %Neutrophils 80.8 % (40.0-75.0); Hemoglobin 9.8 g/dL (13.5-17.5); Mean Corpuscular HGB CONC 33.6 g/dL (32.0-36.0); Mean Corpuscular Hemoglobin 29.8 pg (27.0-33.0); Mean Corpuscular Volume 88.8 fl (81.2-95.1); Mean Platelet Volume 9.7 fl (7.4-10.4); Platelet Count 167 10x3/uL (150-450); RBC Distribution Width 18.1 % (11.5-14.5); Red Blood Cell (RBC) Count 3.29 10x6/uL (4.32-5.72); White Blood Cell (WBC) Count 6.4 10x3/uL (3.5-10.5)
[2021-10-20 05:12] LABS: MDiff Complete? YES
[2021-10-20 05:14] LABS: Platelet Morphology Comment Appears Adequate; RBC Morphology Normal
[2021-10-20 05:17] LABS: Band 9 % (5-11); Lymphocytes 8 % (21-51); Monocytes 6 % (0-10); Neutrophil 77 % (42-75)
[2021-10-20] MEDS: HumaLOG 300 UNITS/3 ML VIAL SC PRN ×3 (06:47→21:34)
[2021-10-20] MEDS: metroNIDAZOLE 500 MG in Premix Bag 1 BAG IVPB SCH ×2 (08:50→21:34)
[2021-10-20] MEDS: Dexamethasone 4 mg/ml Vial SLOW IVP SCH (08:50)
[2021-10-20] MEDS: Pantoprazole 40 MG VIAL IVP SCH ×2 (08:50→21:33)
[2021-10-20] MEDS: Amlodipine 5 MG TAB PO SCH (08:51)
[2021-10-20] MEDS: Benzonatate 100 MG CAP PO PRN (08:51)
[2021-10-20] MEDS: Empagliflozin 10 MG TAB PO SCH (08:51)
[2021-10-20] MEDS: Amiodarone 200 MG TAB PO SCH ×2 (08:52→21:34)
[2021-10-20] MEDS: cefTRIAXone\\ROCEPHIN 2 GM in Sodium Chloride 0.9% 100 ML IVPB SCH (08:54)
[2021-10-20] MEDS: guaiFENesin/Codeine Phosphate 100 mg/10 mg 5 ml UD Cup PO PRN (21:34)
[2021-10-21] MEDS: HumaLOG 300 UNITS/3 ML VIAL SC PRN (06:56)
[2021-10-21] MEDS: Benzonatate 100 MG CAP PO PRN (08:58)
[2021-10-21] MEDS: metroNIDAZOLE 500 MG in Premix Bag 1 BAG IVPB SCH (08:58)
[2021-10-21] MEDS: Pantoprazole 40 MG VIAL IVP SCH (08:58)
[2021-10-21] MEDS: Amlodipine 5 MG TAB PO SCH (08:59)
[2021-10-21] MEDS: Empagliflozin 10 MG TAB PO SCH (08:59)
[2021-10-21] MEDS: cefTRIAXone\\ROCEPHIN 2 GM in Sodium Chloride 0.9% 100 ML IVPB SCH (09:00)
[2021-10-21] MEDS: Amiodarone 200 MG TAB PO SCH (09:00)
[2021-10-21] MEDS: Dexamethasone 4 mg/ml Vial SLOW IVP SCH (09:00)
[2021-10-21 09:43] VITALS: BP 148/75; TEMP 97.5
== END 2021-10-21 10:52 | disposition home or self-care (01) | DRG 177 ==
LOC: PREOBSVTOIN 12:57 → CSHTELE 15:02
PROVIDERS: ADMIT Internal Medicine; ATTEND Internal Medicine
PROC: 3E0333Z Introduction of Anti-inflammatory into Peripheral Vein, Percutaneous Approach (ICD-10-PCS; principal; 2021-10-14)
PROC: 8E0ZXY6 Isolation (ICD-10-PCS; 2021-10-14)
PROC: 5A09357 Assistance with Respiratory Ventilation, Less than 24 Consecutive Hours, Continuous Positive Airway Pressure (ICD-10-PCS; 2021-10-20)
DX: U07.1 COVID-19 (principal); J96.01 Acute respiratory failure with hypoxia; J12.82 Pneumonia due to coronavirus disease 2019; I13.0 Hypertensive heart and chronic kidney disease with heart failure and stage 1 through stage 4 chronic kidney disease, or unspecified chronic kidney disease; I50.32 Chronic diastolic (congestive) heart failure; I48.19 Other persistent atrial fibrillation; K92.0 Hematemesis; Z68.41 Body mass index [BMI] 40.0-44.9, adult; M86.8X7 Other osteomyelitis, ankle and foot; E11.22 Type 2 diabetes mellitus with diabetic chronic kidney disease; N18.9 Chronic kidney disease, unspecified; E11.51 Type 2 diabetes mellitus with diabetic peripheral angiopathy without gangrene; E11.69 Type 2 diabetes mellitus with other specified complication; E78.2 Mixed hyperlipidemia; I25.118 Atherosclerotic heart disease of native coronary artery with other forms of angina pectoris; R13.10 Dysphagia, unspecified; Z66 Do not resuscitate; E11.40 Type 2 diabetes mellitus with diabetic neuropathy, unspecified; I70.213 Atherosclerosis of native arteries of extremities with intermittent claudication, bilateral legs; E66.01 Morbid (severe) obesity due to excess calories; D63.1 Anemia in chronic kidney disease; Z95.1 Presence of aortocoronary bypass graft; Z98.42 Cataract extraction status, left eye; Z98.41 Cataract extraction status, right eye; Z90.49 Acquired absence of other specified parts of digestive tract; I25.2 Old myocardial infarction; Z79.82 Long term (current) use of aspirin; Z79.899 Other long term (current) drug therapy; Z79.01 Long term (current) use of anticoagulants
CPT/HCPCS: 36415; 36416; 71045; 80048; 80053; 82728; 83735; 83880; 84484; 85025; 85379; 86140; 93005; 93010; 94760; C9113; J0696; J1100; J1815; J2060; J3490

== ENCOUNTER 2022-02-07 13:38 | Outpatient (CLI) | payer MEDICARE, BC | END 2022-02-07 13:39 | disposition home or self-care (01) | LOC: CSHWCC 13:38 | PROVIDERS: ATTEND Preventive Medicine Undersea and Hyperbaric Medicine | DX: S91.101D Unspecified open wound of right great toe without damage to nail, subsequent encounter (principal); L89.622 Pressure ulcer of left heel, stage 2; I87.311 Chronic venous hypertension (idiopathic) with ulcer of right lower extremity; L97.312 Non-pressure chronic ulcer of right ankle with fat layer exposed; R60.0 Localized edema | CPT/HCPCS: 11042; 97139; G0463; 99214 ==

== ENCOUNTER 2022-02-14 15:07 | Outpatient (CLI) | payer MEDICARE, BC | END 2022-02-14 15:08 | disposition home or self-care (01) | LOC: CSHWCC 15:07 | PROVIDERS: ATTEND Preventive Medicine Undersea and Hyperbaric Medicine | DX: L89.622 Pressure ulcer of left heel, stage 2 (principal); I87.311 Chronic venous hypertension (idiopathic) with ulcer of right lower extremity; S91.101D Unspecified open wound of right great toe without damage to nail, subsequent encounter; L97.312 Non-pressure chronic ulcer of right ankle with fat layer exposed; R60.0 Localized edema ==

== ENCOUNTER 2022-04-04 10:50 | Outpatient (CLI) | payer MEDICARE, BC | END 2022-04-04 10:51 | disposition home or self-care (01) | LOC: CSHWCC 10:50 | PROVIDERS: ATTEND Nurse Practitioner Family | DX: S91.101D Unspecified open wound of right great toe without damage to nail, subsequent encounter (principal); L89.514 Pressure ulcer of right ankle, stage 4; L89.622 Pressure ulcer of left heel, stage 2; R60.0 Localized edema ==

== ENCOUNTER 2022-04-25 14:25 | Outpatient (CLI) | payer MEDICARE, BC | END 2022-04-25 14:26 | disposition home or self-care (01) | LOC: CSHWCC 14:25 | PROVIDERS: ATTEND Nurse Practitioner Family | DX: S81.801D Unspecified open wound, right lower leg, subsequent encounter (principal); S91.301D Unspecified open wound, right foot, subsequent encounter; L89.622 Pressure ulcer of left heel, stage 2; L89.514 Pressure ulcer of right ankle, stage 4; R60.0 Localized edema | CPT/HCPCS: 29581 ==

== ENCOUNTER 2022-05-21 14:40 | Outpatient (CLI) | payer MEDICARE, BC | END 2022-05-21 14:41 | disposition home or self-care (01) | LOC: CSHWCC 14:40 | PROVIDERS: ATTEND Nurse Practitioner Family | DX: L89.154 Pressure ulcer of sacral region, stage 4 (principal); L89.622 Pressure ulcer of left heel, stage 2; L89.514 Pressure ulcer of right ankle, stage 4; S81.801D Unspecified open wound, right lower leg, subsequent encounter; S91.301D Unspecified open wound, right foot, subsequent encounter; R60.0 Localized edema | CPT/HCPCS: 29581 ==

== ENCOUNTER 2022-06-18 14:03 | Outpatient (CLI) | payer MEDICARE, BC | END 2022-06-18 14:04 | disposition home or self-care (01) | LOC: CSHWCC 14:03 | PROVIDERS: ATTEND Nurse Practitioner Family | DX: S81.801D Unspecified open wound, right lower leg, subsequent encounter (principal); S91.301D Unspecified open wound, right foot, subsequent encounter; R60.0 Localized edema | CPT/HCPCS: 29581 ==

== ENCOUNTER 2022-07-02 13:44 | Outpatient (CLI) | payer MEDICARE, BC | END 2022-07-02 13:45 | disposition home or self-care (01) | LOC: CSHWCC 13:44 | PROVIDERS: ATTEND Nurse Practitioner Family | DX: S81.801D Unspecified open wound, right lower leg, subsequent encounter (principal); S91.301D Unspecified open wound, right foot, subsequent encounter; R60.0 Localized edema | CPT/HCPCS: 97607; 99213; G0463 ==

== ENCOUNTER 2022-07-05 10:09 | Outpatient (CLI) | payer MEDICARE, BC | END 2022-07-05 10:10 | disposition home or self-care (01) | LOC: CSHWCC 10:09 | PROVIDERS: ATTEND Nurse Practitioner Family | DX: S91.301D Unspecified open wound, right foot, subsequent encounter (principal); S91.001D Unspecified open wound, right ankle, subsequent encounter; R60.0 Localized edema | CPT/HCPCS: 97139; G0463; 99213 ==

== ENCOUNTER 2022-07-10 13:04 | Outpatient (CLI) | payer MEDICARE, BC | END 2022-07-10 13:05 | disposition home or self-care (01) | LOC: CSHWCC 13:04 | PROVIDERS: ATTEND Nurse Practitioner Family | DX: R60.0 Localized edema (principal); S91.301D Unspecified open wound, right foot, subsequent encounter | CPT/HCPCS: 11043; 97607 ==

== ENCOUNTER 2022-07-12 13:22 | Outpatient (CLI) | payer MEDICARE, BC | END 2022-07-12 13:23 | disposition home or self-care (01) | LOC: CSHWCC 13:22 | PROVIDERS: ATTEND Nurse Practitioner Family | DX: S91.301D Unspecified open wound, right foot, subsequent encounter (principal); R60.0 Localized edema ==

== ENCOUNTER 2022-07-16 14:04 | Outpatient (CLI) | payer MEDICARE, BC | END 2022-07-16 14:05 | disposition home or self-care (01) | LOC: CSHWCC 14:04 | PROVIDERS: ATTEND Nurse Practitioner Family | DX: S91.301D Unspecified open wound, right foot, subsequent encounter (principal); S91.001D Unspecified open wound, right ankle, subsequent encounter; R60.0 Localized edema | CPT/HCPCS: 11043; 11046; 97607 ==

== ENCOUNTER 2022-07-19 12:55 | Outpatient (CLI) | payer MEDICARE, BC | END 2022-07-19 12:56 | disposition home or self-care (01) | LOC: CSHWCC 12:55 | PROVIDERS: ATTEND Nurse Practitioner Family | DX: S91.301D Unspecified open wound, right foot, subsequent encounter (principal); S91.001D Unspecified open wound, right ankle, subsequent encounter; R60.0 Localized edema | CPT/HCPCS: 97607 ==

== ENCOUNTER 2022-07-31 09:34 | Outpatient (CLI) | payer MEDICARE, BC | END 2022-07-31 09:35 | disposition home or self-care (01) | LOC: CSHWCC 09:34 | PROVIDERS: ATTEND Nurse Practitioner Family | DX: S91.301D Unspecified open wound, right foot, subsequent encounter (principal); R60.0 Localized edema | CPT/HCPCS: 87070; 87077; 87186; 87205 ==

== ENCOUNTER 2022-08-03 08:38 | Day surgery (SDC) | payer MEDICARE, BC ==
[2022-08-03] MEDS ORDERED: Aspirin 325 MG TAB ONE (09:23)
[2022-08-03] MEDS ORDERED: Ascorbic Acid 500 mg Chewable Tablet ONE (09:23)
[2022-08-03 09:30] LABS: #Basophils 0.1 10x3/uL (0.0-0.2); #Eosinphils 0.3 10x3/uL (0.0-0.5); #Monocytes 0.9 10x3/uL (0.0-1.1); #Neutrophils 4.3 10x3/uL (1.5-8.4); %Basophils 0.8 % (0.0-2.0); %Eosinophils 4.3 % (0.0-6.0); %Lymphocytes 26.7 % (18.0-47.0); %Monocytes 11.7 % (0.0-10.0); Hemoglobin 12.6 g/dL (13.5-17.5); Mean Corpuscular HGB CONC 32.5 g/dL (32.0-36.0); Mean Corpuscular Hemoglobin 29.6 pg (27.0-33.0); Mean Corpuscular Volume 91.3 fl (81.2-95.1); Platelet Count 168 10x3/uL (150-450); RBC Distribution Width 16.2 % (11.5-14.5); Red Blood Cell (RBC) Count 4.25 10x6/uL (4.32-5.72); White Blood Cell (WBC) Count 7.6 10x3/uL (3.5-10.5)
[2022-08-03 09:47] LABS: INR-International Normal Ratio 1.1; PTT 30.3 sec (22.0-33.0); Prothrombin Time 11.4 sec (9.5-12.1)
[2022-08-03 09:54] LABS: ALT (SGPT) 14 U/L (8-55); AST (SGOT) 19 U/L (5-34); Albumin 3.8 g/dL (3.4-4.8); Alkaline Phosphatase 77 U/L (40-110); Anion Gap 13 mmol/L (10-20); BUN (Urea Nitrogen) 33 mg/dL (8.4-25.7); Bilirubin, Total 1.2 mg/dL (0.2-1.2); Calc. Creatinine Clearance 0 mL/min (70-130); Calcium 9.7 mg/dL (7.8-10.44); Carbon Dioxide 26 mmol/L (23-31); Chloride 102 mmol/L (98-107); Estimated GFR 48; Globulin 3.6 g/dL (2.4-3.5); Glucose 115 mg/dL (83-110); Potassium 4.1 mmol/L (3.5-5.1); Protein, Total 7.4 g/dL (5.8-8.1); Sodium 137 mmol/L (136-145)
[2022-08-03] MEDS ORDERED: Lidocaine 1% (PF) 30 ML VIAL ONE (11:17)
[2022-08-03] MEDS ORDERED: Heparin 10,000 UNITS/ 10 ML VIAL ONE ×2 (11:17→12:28)
[2022-08-03] MEDS ORDERED: Adenosine 6 MG/2 ML VIAL ONE (11:17)
[2022-08-03] MEDS ORDERED: Sodium Chloride 0.9% 1,000 ML ONE (11:18)
[2022-08-03] MEDS ORDERED: Fentanyl 100 MCG/2 ML VIAL ONE (11:18)
[2022-08-03] MEDS ORDERED: Midazolam HCl 2 mg/2 ml Vial ONE (11:19)
[2022-08-03] MEDS ORDERED: Iopamidol 300 61% 100 ML VIAL FS ONE (12:00)
[2022-08-03] MEDS ORDERED: Verapamil 5 MG/2 ML VIAL ONE (12:26)
[2022-08-03] MEDS ORDERED: Clopidogrel Bisulfate 300 MG TAB ONE (14:06)
== END 2022-08-03 08:39 | disposition home or self-care (01) ==
LOC: CSHSDC/OP 08:38 → CSHWCC 08:38 → EDSTATUS 09:38
PROVIDERS: ATTEND Specialist
DX: S91.301D Unspecified open wound, right foot, subsequent encounter (principal); S91.001D Unspecified open wound, right ankle, subsequent encounter; R60.0 Localized edema
CPT/HCPCS: 36140; 36245; 36251; 37227; 37228; 75625; 80053; 85025; 85610; 85730; 93005; C1724; C1725; C1760; C1769 ×2; C1876; C1894 ×2; 75716; 75736; 75774; 93010; 99152; 99153; J0153; J1644; J2001; J2250; J3010; J7050; Q9967

== ENCOUNTER 2022-08-15 11:14 | Outpatient (CLI) | payer MEDICARE, BC | END 2022-08-15 11:15 | disposition home or self-care (01) | LOC: CSHWCC 11:14 | PROVIDERS: ATTEND Nurse Practitioner Family | DX: S91.301D Unspecified open wound, right foot, subsequent encounter (principal); S91.001D Unspecified open wound, right ankle, subsequent encounter; R60.0 Localized edema ==

== ENCOUNTER 2022-08-30 12:56 | Outpatient (CLI) | payer MEDICARE, BC | END 2022-08-30 12:57 | disposition home or self-care (01) | LOC: CSHWCC 12:56 | PROVIDERS: ATTEND Nurse Practitioner Family | DX: R60.0 Localized edema (principal); S91.301D Unspecified open wound, right foot, subsequent encounter | CPT/HCPCS: 11043; 11046; 97139; G0463; 99213 ==

== ENCOUNTER 2022-09-13 11:06 | Outpatient (CLI) | payer MEDICARE, BC | END 2022-09-13 11:07 | disposition home or self-care (01) | LOC: CSHWCC 11:06 | PROVIDERS: ATTEND Nurse Practitioner Family | DX: R60.0 Localized edema (principal); S91.301D Unspecified open wound, right foot, subsequent encounter; S91.001D Unspecified open wound, right ankle, subsequent encounter | CPT/HCPCS: 97139; G0463; 99214 ==

== ENCOUNTER 2022-10-10 08:18 | Outpatient (CLI) | payer MEDICARE, BC | END 2022-10-10 08:19 | disposition home or self-care (01) | LOC: CSHWCC 08:18 | PROVIDERS: ATTEND Nurse Practitioner Family | DX: R60.0 Localized edema (principal); L89.514 Pressure ulcer of right ankle, stage 4; S91.301D Unspecified open wound, right foot, subsequent encounter | CPT/HCPCS: 97607 ==

== ENCOUNTER 2022-10-16 11:37 | Outpatient (CLI) | payer MEDICARE, BC | END 2022-10-16 11:38 | disposition home or self-care (01) | LOC: CSHWCC 11:37 | PROVIDERS: ATTEND Nurse Practitioner Family | DX: S91.301D Unspecified open wound, right foot, subsequent encounter (principal); L89.514 Pressure ulcer of right ankle, stage 4; R60.0 Localized edema | CPT/HCPCS: 97607 ==

== ENCOUNTER 2022-10-30 13:36 | Outpatient (CLI) | payer MEDICARE, BC | END 2022-10-30 13:37 | disposition home or self-care (01) | LOC: CSHWCC 13:36 | PROVIDERS: ATTEND Nurse Practitioner Family | DX: R60.0 Localized edema (principal); S91.301D Unspecified open wound, right foot, subsequent encounter; L89.514 Pressure ulcer of right ankle, stage 4 | CPT/HCPCS: 97139; 97607; G0463; 99213 ==

== ENCOUNTER 2022-11-06 10:54 | Emergency (ER) | payer MEDICARE, BC | END 2022-11-06 11:45 | disposition home or self-care (01) | LOC: CSHERS 10:54 | DX: L03.115 Cellulitis of right lower limb (principal); E11.9 Type 2 diabetes mellitus without complications; I10 Essential (primary) hypertension; E78.5 Hyperlipidemia, unspecified | CPT/HCPCS: 99283 ==

== ENCOUNTER 2022-11-07 14:43 | Outpatient (CLI) | payer MEDICARE, BC | END 2022-11-07 14:44 | disposition home or self-care (01) | LOC: CSHWCC 14:43 | PROVIDERS: ATTEND Nurse Practitioner Family | DX: S91.301D Unspecified open wound, right foot, subsequent encounter (principal); L89.514 Pressure ulcer of right ankle, stage 4; R60.0 Localized edema | CPT/HCPCS: 87070; 87205; 97139; 97597; G0463; 99213 ==

== ENCOUNTER 2022-11-07 16:20 | Outpatient (CLI) | payer MEDICARE, BC | END 2022-11-07 16:21 | disposition home or self-care (01) | LOC: CSHRAD 16:20 | PROVIDERS: ATTEND Nurse Practitioner Family | DX: S91.301A Unspecified open wound, right foot, initial encounter (principal); M89.8X7 Other specified disorders of bone, ankle and foot ==

== ENCOUNTER 2022-11-21 14:31 | Outpatient (CLI) | payer MEDICARE, BC | END 2022-11-21 14:32 | disposition home or self-care (01) | LOC: CSHWCC 14:31 | PROVIDERS: ATTEND Nurse Practitioner Family | DX: S91.301D Unspecified open wound, right foot, subsequent encounter (principal); L89.154 Pressure ulcer of sacral region, stage 4; R60.0 Localized edema | CPT/HCPCS: 97597 ==

== ENCOUNTER 2022-12-12 13:44 | Outpatient (CLI) | payer MEDICARE, BC | END 2022-12-12 13:45 | disposition home or self-care (01) | LOC: CSHWCC 13:44 | PROVIDERS: ATTEND Nurse Practitioner Family | DX: R60.1 Generalized edema (principal); L89.514 Pressure ulcer of right ankle, stage 4; S91.301D Unspecified open wound, right foot, subsequent encounter | CPT/HCPCS: 97139; G0463; 99214 ==

== ENCOUNTER 2022-12-28 10:38 | Outpatient (CLI) | payer MEDICARE, BC | END 2022-12-28 10:39 | disposition home or self-care (01) | LOC: CSHWCC 10:38 | PROVIDERS: ATTEND Nurse Practitioner Family | DX: L89.514 Pressure ulcer of right ankle, stage 4 (principal); R60.1 Generalized edema; S91.301D Unspecified open wound, right foot, subsequent encounter | CPT/HCPCS: 97608 ==

== ENCOUNTER 2022-12-31 11:00 | Outpatient (CLI) | payer MEDICARE, BC | END 2022-12-31 11:01 | disposition home or self-care (01) | LOC: CSHWCC 11:00 | PROVIDERS: ATTEND Nurse Practitioner Family | DX: M86.671 Other chronic osteomyelitis, right ankle and foot (principal) | CPT/HCPCS: 82962; 97139; G0277; 36416 ==

== ENCOUNTER 2023-01-09 14:20 | Outpatient (CLI) | payer MEDICARE, BC | END 2023-01-09 14:21 | disposition home or self-care (01) | LOC: CSHWCC 14:20 | PROVIDERS: ATTEND Nurse Practitioner Family | DX: S91.301D Unspecified open wound, right foot, subsequent encounter (principal); R60.0 Localized edema | CPT/HCPCS: 11043; 82962 ×2; 97139 ×2; G0277 ×2; 36416 ==

== ENCOUNTER 2023-01-14 13:04 | Outpatient (CLI) | payer MEDICARE, BC | END 2023-01-14 13:05 | disposition home or self-care (01) | LOC: CSHWCC 13:04 | PROVIDERS: ATTEND Nurse Practitioner Family | DX: M86.671 Other chronic osteomyelitis, right ankle and foot (principal) | CPT/HCPCS: 82962; 97139; G0277; 36416 ==